=== PATIENT | female | born 1980 | race Caucasian/White ===

== ENCOUNTER 2022-04-28 16:47 | Inpatient (IN) | payer BC ==
[~2022-04-28] VITALS: Ht 160 cm; Wt 81.6 kg
[2022-04-28] MEDS ORDERED: ONDANSETRON HCL INJ 2MG/ML 2ML 2 MG/ML VIAL IV STA (17:34)
[2022-04-28] MEDS ORDERED: SODIUM CHLORIDE 0.9% 1000ML 1,000 ML IV STA (17:34)
[2022-04-28 17:52] LABS: BASOPHILS # (AUTO) 0.1 (0.0-0.1); BASOPHILS % 0.4 % (0.0-1.0); EOSINOPHILS # (AUTO) 0.1 (0.0-0.4); EOSINOPHILS % 0.7 % (0.0-6.0); HEMATOCRIT 45.1 % (34.2-44.1); HEMOGLOBIN 16.8 g/dL (12.0-16.0); LYMPHOCYTES # (AUTO) 2.9 (1.0-3.2); LYMPHOCYTES % 23.4 % (18.0-39.1); MEAN CORPUSCULAR HEMOGLOBIN 31.7 pg (28-32); MEAN CORPUSCULAR HGB CONC 37.3 g/dL (31-35); MEAN CORPUSCULAR VOLUME 85.1 fL (81-99); NEUTROPHILS # (AUTO) 8.3 (2.1-6.9); NEUTROPHILS % 66.9 % (38.7-80.0); PLATELET COUNT 399 x10e3/uL (140-360); RED CELL DISTRIBUTION WIDTH 12.5 % (11.7-14.4)
[2022-04-28] MEDS ORDERED: ONDANSETRON HCL INJ 2MG/ML 2ML 2 MG/ML VIAL ONE (17:59)
[2022-04-28] MEDS ORDERED: SODIUM CHLORIDE 0.9% 1000ML 1,000 ML ONE (17:59)
[2022-04-28 18:04] LABS: INR 1.06; PARTIAL THROMBOPLASTIN TIME 27.9 seconds (23.8-35.5)
[2022-04-28 18:13] LABS: ALBUMIN/GLOBULIN RATIO 0.9 (0.8-2.0); ANION GAP 22.8 mmol/L (8-16); CALCIUM 10.4 mg/dL (8.4-10.2); CREATININE, SERUM 1.23 mg/dL (0.57-1.11)
[2022-04-28 18:15] LABS: POTASSIUM 2.8 mmol/L (3.5-5.1)
[2022-04-28] MEDS ORDERED: POTASSIUM CHLORIDE 20 MEQ TAB CR PO STA (18:17)
[2022-04-28 18:18] LABS: CREATINE KINASE 33 IU/L (29-168); LIPASE 83 U/L (8-78)
[2022-04-28] MEDS ORDERED: POTASSIUM CHLORIDE 20MEQ/100ML 100 ML IV ONE (18:30)
[2022-04-28] MEDS ORDERED: IOPAMIDOL 370 MG/ML 100 ML INFUS..BTL INJ ONE (18:36)
[2022-04-28] MEDS ORDERED: ONDANSETRON HCL INJ 2MG/ML 2ML 2 MG/ML VIAL IV PRN (20:15)
[2022-04-28] MEDS ORDERED: Morphine 4mg INJECTION 4 MG/ML INJ IV PRN (20:15)
[2022-04-28 21:47] LABS: CLARITY,URINE SL CLOUDY (CLEAR); COLOR,URINE YELLOW (YELLOW); KETONES,URINE 2+ (NEGATIVE); LEUKOCYTE ESTERASE ,URINE NEGATIVE (NEGATIVE); NITRITE,URINE NEGATIVE (NEGATIVE); PROTEIN,URINE DIPSTICK NEGATIVE (NEGATIVE)
[2022-04-28 21:48] LABS: URINE UROBILINOGEN 0.2 mg/dL (0.2 - 1)
[2022-04-28 21:51] LABS: BACTERIA,URINE MODERATE /HPF; EPITHELIAL CELLS,URINE MANY /LPF; WBC,URINE (MAN) 0-5 /HPF (0-5)
[2022-04-28 21:52] LABS: AMORPHOUS SEDIMENT,URINE FEW (FEW)
[2022-04-28 22:33] VITALS: BP 134/78
[2022-04-28] MEDS ORDERED: IBUPROFEN800 MG PO (22:49)
[2022-04-28] MEDS ORDERED: NEXIUM20 MG PO (22:49)
[2022-04-28] MEDS ORDERED: LOSARTAN POTASS50 MG PO (22:49)
[2022-04-28] MEDS ORDERED: HYDROCHLOROTHIA25 MG PO (22:49)
[2022-04-28] MEDS: SODIUM CHLORIDE 0.9% 1000ML 1,000 ML IV SCH (23:11)
[2022-04-28 23:41] VITALS: BP 134/78
[2022-04-29] VITALS (9 sets, daily range): BP systolic 92–133; BP diastolic 64–93
[2022-04-29] MEDS ORDERED: HYDRALAZINE HCL 20 MG/ML VIAL IV PRN (01:00)
[2022-04-29] MEDS ORDERED: ACETAMINOPHEN 325 MG/10 ML UDC NG PRN (01:00)
[2022-04-29] MEDS: SODIUM CHLORIDE 0.9% 1000ML 1,000 ML IV SCH ×3 (05:28→20:15)
[2022-04-29 06:03] LABS: BASOPHILS # (AUTO) 0.1 (0.0-0.1); BASOPHILS % 0.7 % (0.0-1.0); EOSINOPHILS # (AUTO) 0.2 (0.0-0.4); HEMATOCRIT 39.5 % (34.2-44.1); HEMOGLOBIN 14.4 g/dL (12.0-16.0); LYMPHOCYTES # (AUTO) 2.4 (1.0-3.2); LYMPHOCYTES % 28.9 % (18.0-39.1); MEAN CORPUSCULAR HEMOGLOBIN 31.3 pg (28-32); MEAN CORPUSCULAR HGB CONC 36.5 g/dL (31-35); MEAN CORPUSCULAR VOLUME 85.9 fL (81-99); MONOCYTES # (AUTO) 0.8 (0.2-0.8); MONOCYTES % 9.2 % (4.4-11.3); NEUTROPHILS # (AUTO) 4.9 (2.1-6.9); NEUTROPHILS % 58.8 % (38.7-80.0); PLATELET COUNT 291 x10e3/uL (140-360); RED CELL DISTRIBUTION WIDTH 12.8 % (11.7-14.4)
[2022-04-29 06:31] LABS: ALBUMIN 3.3 g/dL (3.5-5.0); ALBUMIN/GLOBULIN RATIO 0.9 (0.8-2.0); ANION GAP 17.8 mmol/L (8-16); CREATININE, SERUM 0.87 mg/dL (0.57-1.11)
[2022-04-29 06:35] LABS: POTASSIUM 2.8 mmol/L (3.5-5.1)
[2022-04-29 06:57] LABS: CHOL/HDL RATIO 13.5 (3.0-3.6); MAGNESIUM 2.1 MG/DL (1.3-2.1); PHOSPHORUS 3.1 MG/DL (2.3-4.7)
[2022-04-29 07:13] LABS: CREATINE KINASE 24 IU/L (29-168)
[2022-04-29 07:18] LABS: THYROID STIMULATING HORMONE 2.85 uIU/mL (0.350-4.940)
[2022-04-29] MEDS ORDERED: POTASSIUM CHLORIDE 20MEQ/100ML 100 ML IV ONE (08:00)
[2022-04-29] MEDS: POTASSIUM CHLORIDE 20 MEQ TAB CR PO SCH ×2 (09:09→16:14)
[2022-04-29] MEDS: FAMOTIDINE 20 MG/2 ML VIAL IV SCH ×2 (09:09→16:14)
[2022-04-29 16:44] LABS: CREATINE KINASE 30 IU/L (29-168)
[2022-04-29] MEDS: FLUTICASONE PROPIONATE NASAL SPRAY NS SCH (18:17)
[2022-04-29] MEDS: MELATONIN 3 MG TAB PO SCH (21:05)
[2022-04-30] VITALS (8 sets, daily range): BP systolic 108–124; BP diastolic 64–92
[2022-04-30] MEDS: SODIUM CHLORIDE 0.9% 1000ML 1,000 ML IV SCH ×2 (02:42→12:18)
[2022-04-30 06:23] LABS: BASOPHILS # (AUTO) 0.1 (0.0-0.1); BASOPHILS % 0.7 % (0.0-1.0); EOSINOPHILS # (AUTO) 0.2 (0.0-0.4); EOSINOPHILS % 2.6 % (0.0-6.0); HEMATOCRIT 37.5 % (34.2-44.1); HEMOGLOBIN 13.8 g/dL (12.0-16.0); LYMPHOCYTES # (AUTO) 1.7 (1.0-3.2); LYMPHOCYTES % 23.8 % (18.0-39.1); MEAN CORPUSCULAR HEMOGLOBIN 31.4 pg (28-32); MEAN CORPUSCULAR HGB CONC 36.8 g/dL (31-35); MEAN CORPUSCULAR VOLUME 85.4 fL (81-99); MONOCYTES # (AUTO) 0.6 (0.2-0.8); NEUTROPHILS # (AUTO) 4.6 (2.1-6.9); NEUTROPHILS % 64.8 % (38.7-80.0); PLATELET COUNT 229 x10e3/uL (140-360); RED BLOOD COUNT 4.39 x10e6/uL (3.6-5.1); RED CELL DISTRIBUTION WIDTH 12.7 % (11.7-14.4)
[2022-04-30 07:37] LABS: ANION GAP 11.6 mmol/L (8-16); CALCIUM 8.5 mg/dL (8.4-10.2); CREATININE, SERUM 0.81 mg/dL (0.57-1.11); POTASSIUM 3.6 mmol/L (3.5-5.1)
[2022-04-30] MEDS: FLUTICASONE PROPIONATE NASAL SPRAY NS SCH ×2 (09:10→16:55)
[2022-04-30] MEDS: MELATONIN 3 MG TAB PO SCH (21:00)
[2022-05-01] MEDS: SODIUM CHLORIDE 0.9% 1000ML 1,000 ML IV SCH ×3 (04:15→13:15)
[2022-05-01 08:31] VITALS: BP 103/69
[2022-05-01 09:00] VITALS: BP 103/69
[2022-05-01] MEDS: FLUTICASONE PROPIONATE NASAL SPRAY NS SCH ×2 (10:43→17:00)
[2022-05-01 12:07] VITALS: BP 119/84
[2022-05-01] MEDS ORDERED: COLACE100 MG/10 PO (13:53)
[2022-05-01] MEDS ORDERED: DOCUSATE SODIUM LIQD 100 MG/10 ML UDC PO ONE (14:15)
[2022-05-01 16:43] VITALS: BP 104/75
== END 2022-05-01 18:30 | disposition home or self-care (01) | DRG 684 ==
LOC: ER 17:22 → ERHOLD 20:07 → MED/SURG2 21:43
PROVIDERS: ADMIT Internal Medicine; ATTEND Internal Medicine
DX: N17.9 Acute kidney failure, unspecified (principal); I10 Essential (primary) hypertension; K21.9 Gastro-esophageal reflux disease without esophagitis; E86.0 Dehydration; K58.9 Irritable bowel syndrome, unspecified; E66.9 Obesity, unspecified; G62.9 Polyneuropathy, unspecified; E87.6 Hypokalemia; I95.9 Hypotension, unspecified; K76.0 Fatty (change of) liver, not elsewhere classified; Z20.822 Contact with and (suspected) exposure to COVID-19; Z98.84 Bariatric surgery status
CPT/HCPCS: 36415; 71045; 71260; 74177; 80053; 80061; 81001; 82550; 82553; 82948; 83036; 83690; 83735; 84100; 84443; 84484; 84702; 85025; 85610; 85730; 93005; 94799; J2405; J3480; J7030; Q9967